=== PATIENT | male | born 1985 | race Caucasian/White ===

== ENCOUNTER 2018-12-13 15:05 | Emergency (ER) | payer OTHER ==
--- NOTE | 2018-12-13 15:10 | PDOC ---
Rapid Medical Evaluation Medical Evaluation: Allergies Allergy/AdvReac Type Severity Reaction Status Date / Time No Known Allergies Allergy Verified 01/25/14 16:06 12/13/18 15:07 I have performed a brief in-person evaluation of this patient. The patient presents with a chief complaint of: L lower leg/knee pain for 1 week after getting a knee to the L lower leg while playing basketball. Pt c/o worsening pain, especially with ambulation, hence the visit. Pertinent physical exam findings: Tenderness to the L lower leg, proximal fibula I have ordered the following: L Knee and lower leg xrays The patient will proceed to the ED for further evaluation. 12/13/18 15:10 12/13/18 15:12 Discharge Disposition - Diagnosis Leg injury Qualifiers: Encounter type: initial encounter Laterality: left Qualified Code(s): S89.92XA - Unspecified injury of left lower leg, initial encounter - Referrals - Patient Instructions - Post Discharge Activity
[2018-12-13 15:13] VITALS: BP 117/80; PULSE 73; TEMP 98.1; BMI 27.3
[2018-12-13] MEDS ORDERED: IBUPROFEN 400 MG TABLET (FP) PO ONE ×2 (16:00→16:02)
--- NOTE | 2018-12-13 16:15 | PDOC ---
History of Present Illness - General Chief Complaint: Pain, Acute Stated Complaint: LEG PAIN Time Seen by Provider: 12/13/18 15:13 History Source: Patient Exam Limitations: No Limitations Past History - Past Medical History Allergies/Adverse Reactions: Allergies Allergy/AdvReac Type Severity Reaction Status Date / Time No Known Allergies Allergy Verified 01/25/14 16:06 Home Medications: Ambulatory Orders No Home Medications 0 dose .ROUTE UTDICT 01/25/14 GI Disorders: Yes (divertic) - Suicide/Smoking/Psychosocial Hx Smoking Status: No Smoking History: Never smoked Number of Cigarettes Smoked Daily: 0 Information on smoking cessation initiated: No Hx Alcohol Use: No Drug/Substance Use Hx: No *Physical Exam - Vital Signs Last Vital Signs Temp Pulse Resp BP Pulse Ox 98.1 F 73 18 117/80 100 12/13/18 15:08 12/13/18 15:08 12/13/18 15:08 12/13/18 15:08 12/13/18 15:08 - Physical Exam General Appearance: No: Apparent Distress Musculoskeletal: positive: Other (FROM of L knee, L ankle and L foot, mild swelling along LLE, no calf tenderness, no notable bruise, normal skin color) Extremity: positive: Normal Capillary Refill. negative: Calf Tenderness, Erythema Integumentary: positive: Normal Color Neurologic: positive: Fully Oriented, Alert, Normal Mood/Affect, Other (5/5 strength with L knee flexion and extension; 5/5 L dorsiflexion, 4/5 L plantarflexion). negative: Numbness Moderate Sedation - Procedure Monitoring Vital Signs: Procedure Monitoring Vital Signs Temperature 98.1 F 12/13/18 15:08 Pulse Rate 73 12/13/18 15:08 Respiratory Rate 18 12/13/18 15:08 Blood Pressure 117/80 12/13/18 15:08 O2 Sat by Pulse Oximetry (%) 100 12/13/18 15:08 ED Treatment Course - Medications Given in the ED: ED Medications Discontinued Medications Generic Name Dose Route Start Last Admin Trade Name Freq PRN Reason Stop Dose Admin Ibuprofen 800 mg 12/13/18 16:00 12/13/18 16:03 Motrin - PO 12/13/18 16:01 800 mg ONCE ONE Administration Medical Decision Making - Medical Decision Making 33 y/o M with no sig pmh presents with pain along anterior lateral aspect of LLE x 1 week after getting kneed at the site while basketball. Pain is worse with walking and particularly with going down the stairs. (Also works as regional construction manager). Has been taking Naprosyn for pain. Denies fever, numbness , tingling Xrays unremarkable Likely muscle contusion; currently PE not concerning for compartment syndrome Return precautions discussed Will refer to ortho Stable for discharge 12/13/18 16:11 *DC/Admit/Observation/Transfer Diagnosis at time of Disposition: Muscle contusion - Discharge Dispostion Disposition: HOME Condition at time of disposition: Stable Decision to Admit order: No - Referrals Referrals: Nikko Jimenez MD [Primary Care Provider] - 3 days Margarito Ambrose DO [Staff Physician] - Call tomorrow - Patient Instructions Printed Discharge Instructions: DI for Leg Pain, Acute Compartment Syndrome Additional Instructions: Thank you for choosing [facility]. It was a pleasure taking care of you. You may take Motrin 600 mg every 4 hours by mouth as needed for mild to moderate pain. Take Motrin with food. You were referred to orthopedics - please call for follow-up Return to the Emergency Department if your symptoms worsen or persist, you have fever, increased swelling, increased pain, unable to feel extremities, change in color of extremities or other concerning symptoms. - Post Discharge Activity
== END 2018-12-13 16:26 | disposition home or self-care (01) ==
LOC: JERFT 15:05
DX: S80.12XA Contusion of left lower leg, initial encounter (principal); W50.0XXA Accidental hit or strike by another person, initial encounter; Y93.67 Activity, basketball; Y92.310 Basketball court as the place of occurrence of the external cause; Y99.8 Other external cause status
CPT/HCPCS: 73562-TC-LT-FY; 73590-TC-LT-FY; 99281-25

== ENCOUNTER 2019-05-12 10:44 | Emergency (ER) | payer OTHER ==
[2019-05-12 10:58] VITALS: BP 110/69; PULSE 62; TEMP 98.4; BMI 25.5
[2019-05-12] MEDS ORDERED: DIPHTH,PERTUSS(ACELL),TET 0.5 ML DISP.SYRIN IM ONE ×2 (11:34→11:41)
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
== END 2019-05-12 11:48 | disposition home or self-care (01) ==
LOC: JERFT 10:44
PROC: 3E0234Z Introduction of Serum, Toxoid and Vaccine into Muscle, Percutaneous Approach (ICD-10-PCS; principal; 2019-05-12)
DX: S09.8XXA Other specified injuries of head, initial encounter (principal); S00.12XA Contusion of left eyelid and periocular area, initial encounter; S00.81XA Abrasion of other part of head, initial encounter; W18.09XA Striking against other object with subsequent fall, initial encounter; Y93.89 Activity, other specified; Y92.69 Other specified industrial and construction area as the place of occurrence of the external cause; Y99.0 Civilian activity done for income or pay
CPT/HCPCS: 90715; 99282-25